=== PATIENT | female | born 1980 | race Two or more races ===

== ENCOUNTER 2017-11-06 10:21 | Outpatient (CLI) | payer OTHER | END 2017-11-06 10:27 | disposition home or self-care (01) | LOC: SONOGRAMA 10:21 | DX: E03.8 Other specified hypothyroidism (principal); E04.2 Nontoxic multinodular goiter ==

== ENCOUNTER 2021-05-03 11:25 | Outpatient (CLI) | payer OTHER | END 2021-05-03 11:29 | disposition home or self-care (01) | LOC: SONOGRAMA 11:25 | PROVIDERS: ATTEND Pathology Anatomic Pathology & Clinical Pathology | DX: E04.2 Nontoxic multinodular goiter (principal) ==

== ENCOUNTER 2021-10-17 07:37 | Day surgery (SDC) | payer OTHER ==
[~2021-10-17 07:37] MED LIST: LEVOTHYROXINE25 MCG
[2021-10-17] MEDS ORDERED: PERCOCET 5-3251 EACH PO (13:55)
== END 2021-10-17 20:15 | disposition home or self-care (01) ==
LOC: CIR.AMB 07:37
PROVIDERS: ATTEND Surgery
DX: C73 Malignant neoplasm of thyroid gland (principal); Z20.822 Contact with and (suspected) exposure to COVID-19; E06.3 Autoimmune thyroiditis